=== PATIENT | male | born 1990 | race Caucasian/White ===

== ENCOUNTER 2017-04-26 01:17 | Emergency (ER) | payer OTHER ==
[~2017-04-26] VITALS: Ht 182.8 cm; Wt 145.1 kg
[~2017-04-26 01:17] MED LIST: ACULAR 0.5%3 ML OPH; HYDROCODONE BIT1 T11 PO; Motrin,Rufen800 MG PO
[2017-04-26] MEDS ORDERED: ACULAR 3ML 3 ML5 ML OPH (01:55)
[2017-04-26] MEDS ORDERED: TOBRAMYCIN 5 ML5 M1 OPH (01:55)
[2017-04-26] MEDS ORDERED: Motrin,Rufen800 MG PO (01:55)
== END 2017-04-26 02:09 | disposition home or self-care (01) ==
LOC: ED 01:17
DX: H16.9 Unspecified keratitis (principal); F17.200 Nicotine dependence, unspecified, uncomplicated